=== PATIENT | male | born 1985 | race Caucasian/White ===

== ENCOUNTER 2022-11-03 06:06 | Emergency (ER) | payer SELFPAY ==
--- NOTE | 2022-11-03 07:59 | ER ---
Nurse's Notes [facility] Name: Scottie Foley Age: 37 yrs Sex: Male : 1985 Arrival Date: 11/03/2022 Time: 06:20 Bed IW1 Private MD: Diagnosis: Vomiting Presentation: 11/03 06:46 Chief complaint: Patient states: I have abdominal pain that has been going on for the ha1 past two days. Also, nausea and vomiting. Coronavirus screen: Vaccine status: Patient reports receiving the 2nd dose of the covid vaccine. Moderna. Ebola Screen: No symptoms or risks identified at this time. Initial Sepsis Screen: Does the patient meet any 2 criteria? No. Patient's initial sepsis screen is negative. Does the patient have a suspected source of infection? No. Patient's initial sepsis screen is negative. Risk Assessment: Do you want to hurt yourself or someone else? Patient reports no desire to harm self or others. Onset of symptoms was November 01, 2022. 06:46 Method Of Arrival: Ambulatory ha1 06:46 Acuity: HUMPHREY 3 ha1 Triage Assessment: 06:50 General: Appears uncomfortable, Behavior is calm, cooperative. Pain: Complains of pain ha1 in abdomen Pain does not radiate. Pain currently is 10 out of 10 on a pain scale. Quality of pain is described as pressure, throbbing, Aggravated by eating. EENT: No deficits noted. No signs and/or symptoms were reported regarding the EENT system. Neuro: Level of Consciousness is awake, alert, obeys commands, Oriented to person, place, time, situation. Cardiovascular: Capillary refill < 3 seconds Patient's skin is warm and dry. Respiratory: Airway is patent Respiratory effort is even, unlabored, Respiratory pattern is regular, symmetrical. GI: Abdomen is flat, non-distended, Bowel sounds present X 4 quads. Reports lower abdominal pain, constipation, nausea, vomiting. GI: Reports had a feeding tube ten years ago. : No signs and/or symptoms were reported regarding the genitourinary system. Derm: Skin is pink, warm \T\ dry. Musculoskeletal: Circulation, motion, and sensation intact. Range of motion: intact in all extremities. Historical: - Allergies: 06:50 Morphine; ha1 - PMHx: 06:50 Gastric reflux; ha1 - Immunization history:: Adult Immunizations up to date. - Social history:: Smoking status: Patient reports the use of cigarette tobacco products, denies chronic smoking, but will smoke occasionally. - Family history:: not pertinent. Screenin:56 Abuse screen: Denies threats or abuse. Denies injuries from another. Nutritional ha1 screening: No deficits noted. Tuberculosis screening: No symptoms or risk factors identified. Fall Risk None identified. Assessment: 07:47 Reassessment: pt not in lobby when tech went to do IV , registration reports pt left. iw 07:59 Reassessment:. vc1 Vital Signs: 06:46 BP 122 / 95; Pulse 85; Resp 16 S; Temp 98.3(O); Pulse Ox 99% on R/A; Weight 72.57 kg; ha1 ED Course: 06:20 Patient arrived in ED. bp1 06:50 Triage completed. ha1 07:27 Arm band placed on. iw 07:34 Ephraim Murray MD is Attending Physician. rt 08:00 No provider procedures requiring assistance completed. Patient did not have IV access vc1 during this emergency room visit. Administered Medications: 07:58 Not Given (Patient Refused): NS 0.9% 1000 ml IV at 1 bolus Per protocol; 1000 mL bolus vc1 07:58 Not Given (Patient Refused): GI Cocktail without - (Maalox Suspension 30 ml, vc1 Lidocaine Liquid 2 % 15 ml) PO once 07:58 Not Given (Patient Refused): Bentyl (dicyclomine) 20 mg IM once vc1 07:59 Not Given (Patient Refused): Pepcid (famotidine) 20 mg IVP once; dilute with 10 mL 0.9% vc1 NaCl; give over 2 minutes 07:59 Not Given (Patient Refused): Zofran (Ondansetron) 4 mg IVP once; over 2 minutes vc1 Medication: 08:00 VIS not applicable for this client. vc1 Outcome: 07:58 Discharge ordered by . rt 08:00 Discharged to home ambulatory. vc1 08:00 Condition: good 08:00 Patient left the ED. vc1 Signatures: Negrita Slade RN RN iw Kinjal Burch bp1 Carol Rose RN RN vc1 Payal Palma RN RN ha1 [place], Ephraim, MD MD rt
--- NOTE | 2022-11-03 07:59 | EDPHYS ---
Physician Documentation [facility] Name: Scottie Foley Age: 37 yrs Sex: Male : 1985 Arrival Date: 11/03/2022 Time: 06:20 Bed IW1 Private MD: ED Physician Ephraim Murray HPI: 11/03 07:59 This 37 yrs old Male presents to ER via Ambulatory with complaints of Abdominal Pain, rt Vomiting. 07:59 The patient presents to the emergency department with nausea, vomiting, abdominal pain. rt Onset: The symptoms/episode began/occurred acutely, 1 week(s) ago. The symptoms are aggravated by nothing. The symptoms are alleviated by nothing. Associated signs and symptoms: Pertinent positives: abdominal pain. Severity of symptoms: At their worst the symptoms were moderate. Patient presents to the ED with an abdominal pain, nausea, vomiting starting 1 week ago. The patient states that the symptoms have worsened today. It is mostly localized to the epigastrium. He denies diarrhea. He states that he did feel constipated. He states that he took stool softeners Tums and Pepto. He states that he was vomiting the Pepto. The patient denies other acute complaints at this time, symptoms are moderate in severity, no other aggravating or alleviating factors. She states that he drinks heavily when he has money, states that on Saturday he drank about 3 rum and cokes. Historical: - Allergies: 06:50 Morphine; ha1 - PMHx: 06:50 Gastric reflux; ha1 - Immunization history:: Adult Immunizations up to date. - Social history:: Smoking status: Patient reports the use of cigarette tobacco products, denies chronic smoking, but will smoke occasionally. - Family history:: not pertinent. ROS: 07:59 Constitutional: Negative for fever, chills, and weight loss, Eyes: Negative for injury, rt pain, redness, and discharge, Neck: Negative for injury, pain, and swelling, Cardiovascular: Negative for chest pain, palpitations, and edema, Respiratory: Negative for shortness of breath, cough, wheezing, and pleuritic chest pain, MS/Extremity: Negative for injury and deformity, Skin: Negative for injury, rash, and discoloration, Neuro: Negative for headache, weakness, numbness, tingling, and seizure, Psych: Negative for depression, anxiety, suicide ideation, homicidal ideation, and hallucinations. 07:59 Abdomen/GI: Positive for abdominal pain, nausea and vomiting. Exam: 07:59 Constitutional: This is a well developed, well nourished patient who is awake, alert, rt and in no acute distress. Head/Face: Normocephalic, atraumatic. Eyes: Pupils equal round and reactive to light, extra-ocular motions intact. Lids and lashes normal. Conjunctiva and sclera are non-icteric and not injected. Cornea within normal limits. Periorbital areas with no swelling, redness, or edema. Chest/axilla: Normal chest wall appearance and motion. Nontender with no deformity. No lesions are appreciated. Cardiovascular: Regular rate and rhythm with a normal S1 and S2. No gallops, murmurs, or rubs. Normal PMI, no JVD. No pulse deficits. Respiratory: Lungs have equal breath sounds bilaterally, clear to auscultation and percussion. No rales, rhonchi or wheezes noted. No increased work of breathing, no retractions or nasal flaring. Skin: Warm, dry with normal turgor. Normal color with no rashes, no lesions, and no evidence of cellulitis. MS/ Extremity: Pulses equal, no cyanosis. Neurovascular intact. Full, normal range of motion. Neuro: Awake and alert, GCS 15, oriented to person, place, time, and situation. Cranial nerves II-XII grossly intact. Motor strength 5/5 in all extremities. Sensory grossly intact. Cerebellar exam normal. Normal gait. Psych: Awake, alert, with orientation to person, place and time. Behavior, mood, and affect are within normal limits. 07:59 Abdomen/GI: Minimal epigastric tenderness without rebound, guarding, distention.. Vital Signs: 06:46 BP 122 / 95; Pulse 85; Resp 16 S; Temp 98.3(O); Pulse Ox 99% on R/A; Weight 72.57 kg; ha1 MDM: 07:34 Patient medically screened. rt 07:59 Differential diagnosis: Nonspecific abd pain, gastritis, cholecystitis, pancreatitis, rt viral gastroenteritis, gastroenteritis. Data reviewed: vital signs, nurses notes. ED course: Patient was seen at triage by me. The patient had epigastric tenderness, nonperitoneal abdominal examination. CT scan, labs, medications were ordered. Patient left from triage without informing staff and before any work-up could be completed. Was unable to discuss with him risks and benefits.. 11/03 07:33 Order name: IV Saline Lock rt 11/03 07:33 Order name: Labs collected and sent rt Administered Medications: 07:58 Not Given (Patient Refused): NS 0.9% 1000 ml IV at 1 bolus Per protocol; 1000 mL bolus vc1 07:58 Not Given (Patient Refused): GI Cocktail without - (Maalox Suspension 30 ml, vc1 Lidocaine Liquid 2 % 15 ml) PO once 07:58 Not Given (Patient Refused): Bentyl (dicyclomine) 20 mg IM once vc1 07:59 Not Given (Patient Refused): Pepcid (famotidine) 20 mg IVP once; dilute with 10 mL 0.9% vc1 NaCl; give over 2 minutes 07:59 Not Given (Patient Refused): Zofran (Ondansetron) 4 mg IVP once; over 2 minutes vc1 Disposition Summary: 11/03/22 07:58 Discharge Ordered Location: Home rt Problem: new rt Symptoms: are unchanged rt Condition: Undetermined rt Diagnosis - Vomiting rt Followup: rt - With: Private Physician - When: 2 - 3 days - Reason: Forms: - Medication Reconciliation Form rt - Thank You Letter rt - Antibiotic Education rt - Prescription Opioid Use rt Signatures: Dispatcher [employer] Payal Hylton, RN RN ha1 Ephraim Murray MD MD rt Carol Rose RN vc1
[2022-11-03 18:05] VITALS: BP 122/95; TEMP 98.3; O2SAT 99
== END 2022-11-03 08:00 | disposition home or self-care (01) ==
LOC: ER 06:06
DX: R11.10 Vomiting, unspecified (principal); F17.210 Nicotine dependence, cigarettes, uncomplicated; Z88.5 Allergy status to narcotic agent
CPT/HCPCS: 99281